=== PATIENT | male | born 1950 | race Caucasian/White ===

== ENCOUNTER → 2021-06-08 10:52 | Outpatient (CLI) | payer OTHER, SELFPAY ==
--- NOTE | 2021-06-08 10:58 | DI.RAD.S_ITS ---
PROCEDURE: FL BARIUM SWALLOW INDICATIONS: Dysphagia, unspecified COMPARISON: None. FINDINGS: Function: There is normal esophageal peristalsis. No elicited gastroesophageal reflux. Morphology: Air-contrast images demonstrate normal mucosal morphology. There is circumferential narrowing of the distal esophagus down to approximately 0.8 centimeters. The focal area of distal esophageal narrowing impeded passage of 13 millimeter barium tablet. Limited images of the stomach demonstrate normal appearance. IMPRESSION: Circumferential stricture of the distal esophagus. 13 millimeter barium tablet was unable to pass the distal esophageal stricture. Stricture could be could be related to either benign or malignant etiology. Recommend endoscopy for additional evaluation. Dictated by: Joana Kirby MD, PhD on 06/08/2021 at 13:34 Approved by: Joana Kirby MD, PhD on 06/08/2021 at 13:37
== END ==
PROVIDERS: PCP Internal Medicine; Referring Provider Internal Medicine; Visit Provider Internal Medicine
DX: K22.2 Esophageal obstruction (principal); R13.10 Dysphagia, unspecified
CPT/HCPCS: 74221

== ENCOUNTER → 2023-03-07 18:41 | Outpatient (CLI) | payer OTHER, SELFPAY ==
--- NOTE | 2023-03-07 | DI.MRI.S_ITS ---
PROCEDURE: MR AB PANCREATIC/MRCP PROTOCOL INDICATIONS: JAUNDICE/ELEVATED BILIRUBIN TECHNIQUE: Coronal HASTE through the abdomen, axial 2-D FLASH in- and [id number], and breath-hold T2 FSE with fat saturation through the biliary system and pancreas. Oblique coronal and axial thin-slice HASTE, radial thick-slab HASTE centered on the extrahepatic bile ducts. Intravenous secretin: Not requested. COMPARISON: [facility], CT, CT CHEST ABDOMEN PELVIS WITH CONTRAST, 08/11/2021, 11:02. FINDINGS: Image quality: Diagnostic. Gallbladder: Absent. Biliary ducts: Intrahepatic biliary dilation. Filling defects within the central common hepatic duct measuring 1.1 and 1.4 centimeters (series 3, image 13). Choledochojejunostomy. Pancreas: No ductal dilation. OTHER: Lung bases: Cardiomegaly. Liver: No solid mass. Hepatic cysts. Homogeneous enhancement of the liver. Spleen: Size is within normal limits. Adrenal Glands: No adrenal nodules. Kidneys and Ureters: No hydronephrosis. No solid mass. No complex renal cystic lesion which requires follow up. Stomach and Bowel: Normal colonic caliber, without significant wall thickening. Prior Whipple. Peritoneum: Small volume ascites. Ventral Wall: No hernia. Abdominal Nodes: No retroperitoneal or mesenteric adenopathy by size criteria. Vessels: Aorta and inferior vena cava are normal in size. Bones: No aggressive osseous abnormality. IMPRESSION: Prior Whipple and choledochojejunostomy. Obstructing stones within the central common hepatic duct measuring 1.1 centimeter and 1.4 centimeter, just proximal to the anastomosis. Moderate ascites. Dictated by: Devin Beebe M.D. on 03/08/2023 at 8:49 Approved by: Devin Beebe M.D. on 03/08/2023 at 9:08
== END ==
PROVIDERS: PCP Internal Medicine; Referring Provider Surgery; Visit Provider Surgery
DX: K80.51 Calculus of bile duct without cholangitis or cholecystitis with obstruction (principal); K76.89 Other specified diseases of liver; K83.8 Other specified diseases of biliary tract; R18.8 Other ascites; R17 Unspecified jaundice
CPT/HCPCS: 74183; A9579